=== PATIENT | male | born 1945 | race Caucasian/White ===

== ENCOUNTER 2021-10-04 23:27 | Inpatient (IN) | payer MEDICARE, OTHER ==
[~2021-10-04] VITALS: Ht 190.5 cm; Wt 111.0 kg
[~2021-10-04 23:27] MED LIST: BENTYL 20MG TAB20 MG PO; EUCERIN CREME57 GM TP; PERCOCET 5/325 T1 EA PO; PREDNISONE 50 M50 MG PO; ZOFRAN ODT 4 MG4 MG PO
[2021-10-05 00:07] LABS: HEMOGLOBIN 16.8 gm/dl (14.0-17.5); RED BLOOD COUNT 5.41 M/UL (4.20-5.50); WHITE BLOOD COUNT 22.3 K/UL (4.5-11.0)
[2021-10-05 00:45] LABS: BUN/CREATININE RATIO 21 (0-10)
[2021-10-05 08:15] LABS: HEMOGLOBIN 15.6 gm/dl (14.0-17.5); RED BLOOD COUNT 5.05 M/UL (4.20-5.50); WHITE BLOOD COUNT 19.7 K/UL (4.5-11.0)
--- NOTE | 2021-10-05 08:31 | NUR ---
Patient has wallet, cellphone, tank charger, and watch in his posession. He will not let RN give these items to security. RN let him know that these items would be safer if kept with security, he refused.
[2021-10-05 08:39] LABS: BUN/CREATININE RATIO 27 (0-10)
[2021-10-05] MEDS ORDERED: ATORVASTATIN CA20 MG PO (11:01)
[2021-10-05] MEDS ORDERED: LOSARTAN-HCTZ1 EAC1 PO (11:01)
--- NOTE | 2021-10-06 02:43 | NUR ---
AGITATED, YELLING AND HITTING TOWARD STAFF,PULLING BIPAP AND ECG WIRES , ATTEMPTS TO CALM AND REASSURE UNSUCCESSFUL. PRECEDEX INCREASED TO 1.4 MCGS.
--- NOTE | 2021-10-06 03:45 | NUR ---
CALL WAS PLACED IN ATTEMPT TO CONTACT PATIENT'S DAUGHTER , "BARB" UNABLE TO CONTACT AT THE PROVIDED PHONE NUMBER. PATIENT'S [facility] , "NURIA" WAS CONTACTED AND INFORMED INTUBATION WAS REQUIRED PER DR BENZ. CONSENT WAS OBTAINED. INTUBATION WAS PERFORMED BY DR. BENZ.
[2021-10-06 05:40] LABS: HEMOGLOBIN 13.8 gm/dl (14.0-17.5); RED BLOOD COUNT 4.57 M/UL (4.20-5.50); WHITE BLOOD COUNT 23.7 K/UL (4.5-11.0)
[2021-10-06 06:15] LABS: BUN/CREATININE RATIO 43 (0-10)
[2021-10-07 05:18] LABS: HEMOGLOBIN 15.4 gm/dl (14.0-17.5); RED BLOOD COUNT 5.02 M/UL (4.20-5.50)
[2021-10-08 02:47] LABS: HEMOGLOBIN 14.8 gm/dl (14.0-17.5); RED BLOOD COUNT 4.74 M/UL (4.20-5.50)
[2021-10-08 02:48] LABS: WHITE BLOOD COUNT 31.1 K/UL (4.5-11.0)
--- NOTE | 2021-10-08 12:28 | NUR ---
PTS DAUGHTER BARB AND GRANDDAUGHTER AVELINA HERE FOR FAMILY MEETING, DISCUSSED POC WITH DR. NORTON AND PLAN TO PROCEED WITH FULL CODE AND TRANSFER TO [facility] FOR CRRT. PT BELONGINGS TAKEN HOME BY DAUGHTER.
--- NOTE | 2021-10-08 17:58 | NUR ---
BED AVAILABLE AT [facility] AT 1620, REPORT CALLED TO REMA SINGER RN. NOTIFIED PTS GRAND DAUGHTER NURIA. DAUGHTER BARB DOES NOT HAVE A PHONE.DAUGHTER GAVE DR. NORTON VERBAL CONSENT FOR TRANSFER AT FAMILY MEETING. [employer] [facility] DECLINED FOR WEATHER, ALSO CONTACTED [facility] FOR [facility] TRANSPORT, THEY ALSO DECLINED FOR WEATHER. NOTIFIED NURIA UNABLE TO GET TRANSPORT FOR PT, PT DECLINING RAPIDLY, BP DROPPING AND VASOPRESSORS INCREASED. DR. NORTON SPOKE WITH HER AND RECOMMENDED THAT THEY COME. THEY WISH FOR PT TO REMAIN A FULL CODE AT THIS TIME, AWARE OF GRAVE PROGNOSIS. NOTIFIED. [facility] UNABLE TO GET TRANSPORT FOR PT. AND DR. STAUFFER AWARE.
--- NOTE | 2021-10-08 19:57 | NUR ---
Patient's family decided on DNR status at 1956.
== END 2021-10-09 03:57 | disposition expired | DRG 871 ==
LOC: ER1 23:27 → CDU 10-05 02:31 → CCU 10-05 02:31
PROVIDERS: Family Medicine; Internal Medicine; Internal Medicine Critical Care Medicine; ADMIT Internal Medicine
PROC: 8E0ZXY6 Isolation (ICD-10-PCS; principal; 2021-10-05)
PROC: XW033H5 Introduction of Tocilizumab into Peripheral Vein, Percutaneous Approach, New Technology Group 5 (ICD-10-PCS; 2021-10-05)
PROC: 3E0333Z Introduction of Anti-inflammatory into Peripheral Vein, Percutaneous Approach (ICD-10-PCS; 2021-10-05)
PROC: XW033E5 Introduction of Remdesivir Anti-infective into Peripheral Vein, Percutaneous Approach, New Technology Group 5 (ICD-10-PCS; 2021-10-05)
PROC: 3E03329 Introduction of Other Anti-infective into Peripheral Vein, Percutaneous Approach (ICD-10-PCS; 2021-10-05)
PROC: B24BZZZ Ultrasonography of Heart with Aorta (ICD-10-PCS; 2021-10-05)
PROC: 5A09457 Assistance with Respiratory Ventilation, 24-96 Consecutive Hours, Continuous Positive Airway Pressure (ICD-10-PCS; 2021-10-05)
PROC: 5A1945Z Respiratory Ventilation, 24-96 Consecutive Hours (ICD-10-PCS; 2021-10-06)
PROC: 3E043XZ Introduction of Vasopressor into Central Vein, Percutaneous Approach (ICD-10-PCS; 2021-10-06)
PROC: 0BH17EZ Insertion of Endotracheal Airway into Trachea, Via Natural or Artificial Opening (ICD-10-PCS; 2021-10-06)
PROC: 02HV33Z Insertion of Infusion Device into Superior Vena Cava, Percutaneous Approach (ICD-10-PCS; 2021-10-06)
PROC: B548ZZA Ultrasonography of Superior Vena Cava, Guidance (ICD-10-PCS; 2021-10-06)
DX: A41.89 Other specified sepsis (principal); U07.1 COVID-19; J12.82 Pneumonia due to coronavirus disease 2019; J15.9 Unspecified bacterial pneumonia; R65.21 Severe sepsis with septic shock; N17.0 Acute kidney failure with tubular necrosis; I26.99 Other pulmonary embolism without acute cor pulmonale; J80 Acute respiratory distress syndrome; R57.0 Cardiogenic shock; E87.1 Hypo-osmolality and hyponatremia; Z66 Do not resuscitate; R74.01 Elevation of levels of liver transaminase levels; I08.3 Combined rheumatic disorders of mitral, aortic and tricuspid valves; E87.5 Hyperkalemia; Z79.01 Long term (current) use of anticoagulants; I48.91 Unspecified atrial fibrillation; I10 Essential (primary) hypertension; E11.9 Type 2 diabetes mellitus without complications; Z79.4 Long term (current) use of insulin; Z90.49 Acquired absence of other specified parts of digestive tract; Z88.0 Allergy status to penicillin; Z82.49 Family history of ischemic heart disease and other diseases of the circulatory system; Z87.891 Personal history of nicotine dependence; Z23 Encounter for immunization; Z68.27 Body mass index [BMI] 27.0-27.9, adult
CPT/HCPCS: ECHO; 31500; 36415; 36600; 71045; 71275; 80048; 80053; 80202; 82550; 82553; 82803; 82962; 83036; 83605; 83735; 83880; 84439; 84443; 84484; 85025; 85027; 85379; 85730; 86140; 87040; 87070; 87081; 87205; 93005; 93306; 93970; 94002; 94003; 94640; 94660; 94664; 94760; 96372; 96374; 96375; 99285; A6212; C1751; C9113; J0171; J0248; J0456; J0692; J1100; J1644; J1650; J1940; J2185; J2270; J2370; J2704; J3370; J7030; J7040; J7070; P9047; Q0249; Q9967; U0002